=== PATIENT | female | born 1975 | race African-American/Black ===

== ENCOUNTER 2019-02-06 23:22 | Inpatient (IN) | payer MEDICAID ==
[~2019-02-06] VITALS: Ht 170.2 cm; Wt 70.3 kg
--- NOTE | 2019-02-06 23:45 | NUR ---
PT BIBSELF C/O INTERMITTENT CHEST PAIN AND SOB WITH ACTIVITY X2 MONTHS. DENIES NAUSEA, VOMITTING, DIZZINESS, HEADACHE. PT AAOX4. RESPIRATIONS EVEN AND UNLABORED. SKIN WARM AND INTACT. ABLE TO AMBULATE WITH STEADY GAIT. NO ACUTE DISTRESS NOTED AT THIS TIME. WILL CONTINUE TO MONITOR
--- NOTE | 2019-02-06 23:50 | NUR ---
PHLBEOTOMIST AT BEDSIDE FOR BLOOD DRAW
--- NOTE | 2019-02-06 23:53 | NUR ---
RADIOLOGY AT BEDSIDE FOR CXR
[2019-02-06 23:59] LABS: BASOPHILS # (AUTO) 0.1 /CMM (0.0-0.2); BASOPHILS % (AUTO) 1.5 % (0.0-2.0); EOSINOPHILS % (AUTO) 1.7 % (0.0-6.0); LYMPHOCYTES # (AUTO) 2.3 /CMM (0.8-4.8); MEAN CORPUSCULAR HGB CONC 28 g/dl (31.0-36.0); MEAN CORPUSCULAR VOLUME 55 fL (82-100); MONOCYTES # (AUTO) 0.3 /CMM (0.1-1.30); MONOCYTES % (AUTO) 6.7 % (2.0-12.0); NEUTROPHILS # (AUTO) 1.5 /CMM (1.8-8.9); NEUTROPHILS % (AUTO) 36.1 % (43.0-81.0); PLATELET COUNT (AUTO) 323 /CMM (150-450); RED BLOOD CELL COUNT(AUTO) 3.24 MIL/uL (4.0-5.2); WHITE BLOOD COUNT (AUTO) 4.2 K/uL (4.3-11.0)
[2019-02-07] VITALS (13 sets, daily range): BP systolic 106–133; BP diastolic 70–94
[2019-02-07 00:03] LABS: HEMATOCRIT 18 % (33-45)
[2019-02-07 00:05] LABS: CALCIUM, SERUM 8.8 mg/dL (8.5-10.1); CARBON DIOXIDE 25 mmol/L (21-32); CHLORIDE 106 mmol/L (98-107); CREATININE 0.6 mg/dL (0.6-1.3); GLUCOSE 99 mg/dL (74-106); POTASSIUM 3.5 mmol/L (3.5-5.1); SODIUM SERUM 140 mmol/L (136-145); UREA NITROGEN, BLOOD 8 mg/dL (7-18)
[2019-02-07 00:42] LABS: EOSINOPHILS % (MANUAL) 1 % (0-4); LYMPHOCYTES % (MANUAL) 56 % (16-48); MONOCYTES % (MANUAL) 4 % (0-11.0); NEUTROPHILS % (MANUAL) 37 (42-76)
[2019-02-07 00:56] LABS: ALBUMIN 3.9 g/dL (3.4-5.0); BILIRUBIN,DIRECT 0.1 mg/dL (0.0-0.2); BILIRUBIN,TOTAL 0.3 mg/dL (0.2-1.0); TOTAL PROTEIN, SERUM 7.1 g/dL (6.4-8.2)
--- NOTE | 2019-02-07 00:59 | NUR ---
BED ASSIGNMENT 205-2
[2019-02-07 01:24] LABS: IRON, SERUM 10 ug/dl (50-175); TOTAL IRON BINDING CAPACITY 449 ug/dl (250-450)
[2019-02-07] MEDS ORDERED: ACETAMINOPHEN 325 MG TABLET PO PRN (01:30)
[2019-02-07] MEDS ORDERED: MAGNESIUM HYDROXIDE 30 ML UDC PO PRN (01:30)
[2019-02-07] MEDS ORDERED: ONDANSETRON HCL/PF 4 MG/2 ML VIAL IVP PRN (01:30)
[2019-02-07] MEDS ORDERED: MAG HYDROX/AL HYDROX/SIMETH 30 ML UDC PO PRN (01:30)
[2019-02-07] MEDS ORDERED: HYDROCODONE/APAP 5/325MG 1 EACH TABLET PO PRN (01:30)
[2019-02-07] MEDS ORDERED: Z GUARD REMEDY 2 OZ OINT TP PRN (01:30)
--- NOTE | 2019-02-07 02:32 | NUR ---
GAVE REPORT TO NELL JACKSON FOR PAPITO
--- NOTE | 2019-02-07 04:04 | NUR ---
[facility]
--- NOTE | 2019-02-07 04:06 | NUR ---
ADMISSION NOTES: RECEIVED REPORT FROM CHRISSY JACKSON. PT BROUGHT TO THE UNIT VIA GURNEY, ACCOMPANIED BY FRIENDS. RECEIVED PT WITH BLOOD TRANSFUSION BAG EMPTIED, NOW RN WILL RUN NS. IV ACCESS PATENT AND FLUSHING WELL, ON LEFT AC G 20. ORIENTED PT TO UNIT POLICY AND HOURLY ROUNDING, USE OF CALL LIGHT . ANSWER PT'S CONCERNS AND QUESTIONS. VS TAKEN AND RECORDED. SKIN ASSESSMENT PERFORMED, NO SKIN ISSUES NOTED. INVENTORY OF BELONGINGS COMPLETED BY JENNY GONCALVES. PT'S FRIENDS TOOK PT'S [place]ALLET HOME. WILL GET 2ND UNIT OF BLOOD AFTER RUNNING NS. SAFETY PRECAUTIONS FOR FALL INITIATED, CALL LIGHT IN REACH, WILL CONTINUE TO MONITOR PT.
--- NOTE | 2019-02-07 05:36 | NUR ---
BLOOD TRANSFUSION: STARTED WITH 2ND UNIT OF BLOOD TRANSFUSION. EXPLAINED ABOUT RISK AND BENEFITS. VS TAKEN AND RECORDED. WILL STAY WITH THE PT FOR 15-30MINS TO MONITOR FOR ANY BLOOD TRANSFUSION REACTIONS.
--- NOTE | 2019-02-07 06:05 | NUR ---
RN NOTES: NO S/S OF BLOOD TRANSFUSION REACTION NOTED. WILL CONTINUE MONITORING PT
--- NOTE | 2019-02-07 07:00 | NUR ---
RN OPENING NOTES RECEIVED PATIENT IN BED RESTING. A/OX4, ABLE TO MAKE NEEDS KNOWN. NOT IN ANY FORM OF DISTRESS. DENIED ANY PAIN OR DISCOMFORT. IV ACCESS INTACT AND PATENT. ONGOING BLOOD TRANSFUSION, TOLERATING WELL, NO ADVRSE REACTION NOTED. KEPT PATIENT SAFE AND COMFORTABLE. BED IN LOW/LOCKED POSIITON, SIDERAILS UPX2, CALL LIGHT IN REACH. WILL CONTINUE TO MONITOR ACCORDINGLY.
--- NOTE | 2019-02-07 07:05 | NUR ---
RN CLOSING NOTES: PT IN BED, SLEEPING, AROUSES TO TACTILE STIMULI. DENIES ANY PAIN OR DISCOMFORT AT THIS TIME. IV ACCESS REMAINS PATENT AND FLUSHING WELL, ON HL, PT REFUSING IVF DESPITE GIVING EDUCATION. VS REMAINS STABLE, NEEDS ATTENDED. SAFETY PRECAUTIONS FOR FALL REMAINS ENGAGED, CALL LIGHT IN REACH, WILL ENDORSE TO DAY RN FOR CONTINUITY OF CARE. Addendum: 02/07/19 at 0711 by HOLLIS CALVIN RN DISREGARD ABOVE DOCUMENTATION, WRONG ENTRY
--- NOTE | 2019-02-07 07:10 | NUR ---
RN CLOSING NOTES: PT IN BED, AWAKE, DENIES ANY DIZZINESS, HEAD ACHE, LIGHT HEADEDNESS. IV ACCESS REMAINS PATENT AND FLUSHING WELL, INFUSING WITH 2ND BAG OF PRBC. NO S/S OF BLEEDING NOTED. PT ON VS MONITORING Q15, [id number] PER BT PROTOCOL. FOR CASE MANAGEMENT, NAIL PULLER CONSULT. PER PT, SHE WAS TOLD BY ER MD THAT SHE WILL BE SEEN BY INSPECTOR FLOOR SUB ASSEMBLY/ONCOLOGIST TODAY BECAUSE HER H/H IS TOO LOW. NEEDS ATTENDED AND ANTICIPATED. SAFETY PRECAUTIONS FOR FALL INITIATED, CALL LIGHT IN REACH. WILL ENDORSE TO DAY RN FOR CONTINUITY OF CARE.
[2019-02-07] MEDS ORDERED: ASCO10007 PO (07:22)
--- NOTE | 2019-02-07 08:00 | NUR ---
RN NOTES BLOOD TRANSFUSION FINISHED. VS STABLE, PATIENT TOLERATED WELL. WILL MONITOR ACCORDINGLY
[2019-02-07 11:03] LABS: BASOPHILS % (AUTO) 0.7 % (0.0-2.0); EOSINOPHILS % (AUTO) 3.6 % (0.0-6.0); HEMATOCRIT 23 % (33-45); HEMOGLOBIN 7.1 g/dL (11.5-14.8); LYMPHOCYTES # (AUTO) 1.5 /CMM (0.8-4.8); LYMPHOCYTES % (AUTO) 50.1 % (20.0-44.0); MEAN CORPUSCULAR HGB CONC 31 g/dl (31.0-36.0); MEAN CORPUSCULAR VOLUME 62 fL (82-100); MONOCYTES # (AUTO) 0.4 /CMM (0.1-1.30); MONOCYTES % (AUTO) 12.4 % (2.0-12.0); NEUTROPHILS % (AUTO) 33.2 % (43.0-81.0); PLATELET COUNT (AUTO) 278 /CMM (150-450); RED BLOOD CELL COUNT(AUTO) 3.76 MIL/uL (4.0-5.2); WHITE BLOOD COUNT (AUTO) 3.1 K/uL (4.3-11.0)
[2019-02-07] MEDS: PANTOPRAZOLE 40 MG TABLET.DR PO SCH ×2 (11:26→17:52)
[2019-02-07 12:49] LABS: EOSINOPHILS % (MANUAL) 1 % (0-4); LYMPHOCYTES % (MANUAL) 41 % (16-48); MONOCYTES % (MANUAL) 12 % (0-11.0); NEUTROPHILS % (MANUAL) 46 (42-76)
[2019-02-07 14:34] LABS: OCCULT BLOOD STOOL POSITIVE (NEGATIVE)
[2019-02-07] MEDS: SOD FERRIC GLUC 125 MG in IV NS 0.9% 100 ML IV SCH (14:57)
--- NOTE | 2019-02-07 19:30 | NUR ---
RN INITIAL NOTES: RECEIVED REPORT FROM CHRIS JACKSON. PT IN BED, FRIENDS AT BED SIDE. NO IV ACCESS AT THIS TIME PT REQUESTED TO REMOVE IT, PER DAY RN, PT COMPLAINING ITS PAINFUL ALTHOUGH ITS A NEW INSERTION. PT WANTS IV TO BE DONE IN AM BEFORE PROCEDURE. EXPLAINED TO PT ABOUT IV POLICY, MADE MD AWARE. PT STILL INSISTED NO IV TONIGHT. DISCUSSED PLAN OF CARE TO PT TONIGHT. SAFETY PRECAUTIONS FOR FALL INITIATED, CALL LIGHT IN REACH, WILL CONTINUE MONITORING PT.
--- NOTE | 2019-02-07 19:35 | NUR ---
RN CLOSING NOTES PATIENT IN STABLE CONDITION. ALL NEEDS ATTENDED AND PROVIDED. ALL DUE MEDICATIONS ADMINISTERED ORDERED. ASSISTED WITH ADLS. NPO AFTER MIDNIGHT, SCHEDULE FOR COLONOSCOPY/EGD TOMORROW. KEPT PATIENT SAFE AND COMFORTBALE. BED IN LOW/LOCKED POSITION, SIDERAILS UPX2, CALL LIGHT IN REACH. ENDORSED TO NIGHT RN FOR PAPITO.
[2019-02-07] MEDS ORDERED: PEG 3350/NA SULF,BICARB,CL/KCL 4,000 ML BOTTLE PO ONE (20:00)
[2019-02-07] MEDS ORDERED: PEG 3350/NA SULF,BICARB,CL/KCL 4,000 ML BOTTLE ONE (20:25)
--- NOTE | 2019-02-07 21:33 | NUR ---
RN NOTES: INFORMED PT ABOUT PROCEDURE FOR TOMORROW EGD, COLONOSCOPY, DISCUSSED RISK AND BENEFITS OF THE PROCEDURES. PT FULLY AGREE TO HAVE PROCEDURE DONE TOMORROW, SIGNED CONSENT X3, EXPLAINED ABOUT GOLYTELY. [employer] GOLAMANDALY ALEX PITCHER INSTRUCTED PT SHE WILL NEED TO FINISH THE ENTIRE 4L UNTIL 0600AM PER INSTRUCTIONS BY GI , INSTRUCTED ALSO TO CALL WHENEVER SHE NEEDS TO USE BATHROOM IN ORDER TO SEE THE COLOR, CONSISTENCY OF THE BM. PT UNDERSTAND AND AGREE WITH THE PLAN.
[2019-02-08] VITALS (9 sets, daily range): BP systolic 102–120; BP diastolic 70–82
--- NOTE | 2019-02-08 00:24 | NUR ---
RN NOTES: PT REQUESTED TO TAKE A SHOWER NOW. EVS JUST FINISHED CLEANING THE SHOWER ROOM.
--- NOTE | 2019-02-08 01:20 | NUR ---
RN NOTES: PT HAD BM, SEEN THE CONSISTENCY AND COLOR, ALREADY LIQUID LIKE WATER. PT STATED SHE WILL SLEEP FOR NOW, BUT WILL CONTINUE TO DRINK GOLYTELY LATER, SHE ALREADY CONSUMED 1L OF GOLYTELY I TRANSFERRED IT ON PITCHER TO EASILY POUR THE MEDICATION/PREP.
[2019-02-08] MEDS ORDERED: SORBITOL SOLUTION 30 ML ONE (05:36)
--- NOTE | 2019-02-08 05:53 | NUR ---
RN NOTES: SORBITOL ORDERED FOR 0600 AM, MEDICATION OVERRIDE BY RN COTTON CLEANER JOSSUE, HOWEVER ONLY 60ML (2 SOLUTIONS) AVAILABLE STOCK FROM [facility]. PER RN ALKA MARCUM TO WAIT FOR PHARMACY TO OPEN IN ORDER TO GET THE OTHER HALF OF THE DOSE. INFORMED GI DR YOUNG. ASKED IF OKAY TO GIVE THE 60ML SOLUTION NOW, AND WILL GIVE REMAINING DOSE ONCE PHARMACY OPENS BY 0700/0730AM.
[2019-02-08] MEDS ORDERED: SORBITOL SOLUTION 30 ML PO ONE (06:00)
[2019-02-08 06:29] LABS: BASOPHILS % (AUTO) 0.7 % (0.0-2.0); EOSINOPHILS % (AUTO) 2.4 % (0.0-6.0); HEMATOCRIT 23 % (33-45); LYMPHOCYTES # (AUTO) 1.8 /CMM (0.8-4.8); LYMPHOCYTES % (AUTO) 49.9 % (20.0-44.0); MEAN CORPUSCULAR HGB CONC 31 g/dl (31.0-36.0); MEAN CORPUSCULAR VOLUME 61 fL (82-100); MONOCYTES # (AUTO) 0.4 /CMM (0.1-1.30); MONOCYTES % (AUTO) 11.7 % (2.0-12.0); NEUTROPHILS # (AUTO) 1.3 /CMM (1.8-8.9); NEUTROPHILS % (AUTO) 35.3 % (43.0-81.0); PLATELET COUNT (AUTO) 263 /CMM (150-450); RED BLOOD CELL COUNT(AUTO) 3.69 MIL/uL (4.0-5.2); WHITE BLOOD COUNT (AUTO) 3.6 K/uL (4.3-11.0)
--- NOTE | 2019-02-08 06:38 | NUR ---
ADMINISTRATION OF 60ML OF SORBITOL: ONLY 60ML (2 SOLUTIONS) AVAILABLE, OVERRIDE BY RN SUP JOSSUE, UNABLE TO SCAN MEDS SINCE THE DOSE AVAILABLE IS NOT ENOUGH. PER RN SUP TO DOCUMENT THAT 60ML SOLUTION IS BEING ADMINISTERED TO PT, AND THE REMAINING 60 ML WILL BE ADMINISTER ONCE PHARMACY OPENS AND BRING THE SAID MEDICATIONS. PER RN SUP, TO SCAN MEDICATION LATER ONCE ALL DOSAGE/MEDICATION BOTTLES AVAILABLE. ADMINISTER SORBITOL 60 ML PO ORDERED BY MD FOR BOWEL PREP.
[2019-02-08 06:42] LABS: CALCIUM, SERUM 8.1 mg/dL (8.5-10.1); CREATININE 0.6 mg/dL (0.6-1.3); PHOSPHORUS 3.6 mg/dL (2.5-4.9); POTASSIUM 3.6 mmol/L (3.5-5.1)
--- NOTE | 2019-02-08 06:54 | NUR ---
RN NOTES: SPOKED WITH PHARMACIST, RELAYED SITUATION ABOUT SORBITOL, STATED THEY WILL BRING 2 MORE SORBITOL SOLUTION
--- NOTE | 2019-02-08 06:58 | NUR ---
CRITICAL HGB 7.0 : RECEIVED REPORT FROM BIPIN, LAB, HGB 7.0, CONTACTED YARED ESPINAL, AWAITING FOR CALL BACK
--- NOTE | 2019-02-08 07:16 | NUR ---
RN CLOSING NOTES: PT DENIES ANY PAIN OR DISCOMFORT AT THIS TIME. PT NPO X MEDS. SORBITOL ADMINISTERED AT 0600AM PER MD FOR BOWEL PREP. PT WANTS IV INSERTION FOR LATER, BECAUSE SHE'S AFRAID THAT THE NEEDLE WILL CAUSE DISCOMFORT AGAIN ON HER ARM. EDUCATION PROVIDED TO PT. PT FOR EGD AND COLONOSCOPY AT 12NOON TODAY WITH DR YOUNG SUPERVISING GI PHYSICIAN. ALL CONSENT SIGNED BY PT, CHECKLIST ATTACHED TO CHART. PT'S STOOL CLEAR AND LIQUID LIKE WATER. AWAITING CALL BACK FROM MD TRIBAL DELEGATE REGARDING HGB 7. VS REMAINS STABLE, NEEDS ATTENDED. SAFETY PRECAUTIONS FOR FALL REMAINS ENGAGED, CALL LIGHT IN REACH, WILL ENDORSE TO DAY RN FOR CONTINUITY OF CARE.
[2019-02-08 07:18] LABS: THYROID STIMULATING HORMONE 2.793 uIU/mL (0.358-3.74)
--- NOTE | 2019-02-08 07:29 | NUR ---
MS RN NOTES PATIENT IN BED ALERT ORIENTED X 4. NO ACUTE DISTRESS NOTED. BREATHING UNLABORED. NO SOB NOTED. NO IV ACCESS AT THIS TIME, REFUSE INSERTION NOW WANTS DONE LATER, WILL TRY AGAIN LATER. SAFETY MEASURES IN PLACE. CALL LIGHT WITHIN REACH. WILL CONTINUE TO MONITOR ACCORDINGLY.
--- NOTE | 2019-02-08 07:53 | NUR ---
RN NOTES: PER DR YOUNG TO GIVE 1 UNIT PRBC
--- NOTE | 2019-02-08 08:09 | NUR ---
MS RN NOTES PHARMACY DELIVERED REMAINING 60ML OF SORBITOL, MEDICATION ADMINISTERED.
--- NOTE | 2019-02-08 08:15 | NUR ---
MS RN NOTES DR BOWSER REGARDING HGB 7, 1 PRBC TO BE GIVEN SOON AVAILABLE.
[2019-02-08 08:29] LABS: LYMPHOCYTES % (MANUAL) 55 % (16-48); MONOCYTES % (MANUAL) 13 % (0-11.0); NEUTROPHILS % (MANUAL) 32 (42-76)
[2019-02-08] MEDS: PANTOPRAZOLE 40 MG TABLET.DR PO SCH ×2 (09:20→17:31)
--- NOTE | 2019-02-08 10:30 | NUR ---
MS RN NOTES PATIENT TRANSPORTED TO OPERATING ROOM FOR EGD AND COLONOSCOPY IN STABLE CONDITION.
--- NOTE | 2019-02-08 13:00 | NUR ---
MS RN NOTES PATIENT CAME BACK OPERATING ROOM, S/P EGD AND COLONOSCOPY BY DR YOUNG IN STABLE CONDITION. PATIENT ALERT ORIENTED X 4. NO ACUTE DISTRESS NOTED. WITH STABLE VITAL SIGNS. WILL CONTINUE TO MONITOR PATIENT. DR YOUNG ORDERED REGULAR DIET, NOTED AND CARRIED OUT.
--- NOTE | 2019-02-08 15:00 | NUR ---
MS RN NOTES STARTED BLOOD TRANSFUSION, PATIENT WITH STABLE VITAL SIGNS. WILL CONTINUE TO MONITOR PATIENT.
--- NOTE | 2019-02-08 15:15 | NUR ---
MS RN NOTES WITH ON GOING BLOOD TRANSFUSION NO ADVERSE REACTION NOTED, PATIENT WITH STABLE VITAL SIGNS. WILL CONTINUE TO MONITOR PATIENT.
--- NOTE | 2019-02-08 15:19 | NUR ---
Social service consult requested by CARLEI Garcia for information on Advance Directive. RADHIKA met with pt. bedside. Pt. is alert and oriented x 4. SW explained the Advance Directive process and left the forms for the pt. Pt. stated, she will review the form later since she recently came out of surgery. No other social service needs are requested at this time. SW is available, if needed.
--- NOTE | 2019-02-08 15:45 | NUR ---
MS RN NOTES WITH ON GOING BLOOD TRANSFUSION NO ADVERSE REACTION NOTED, PATIENT WITH STABLE VITAL SIGNS. WILL CONTINUE TO MONITOR PATIENT.
--- NOTE | 2019-02-08 18:22 | NUR ---
MS RN NOTES BLOOD TRANSFUSION ENDED ,NO ADVERSE REACTION NOTED, PATIENT WITH STABLE VITAL SIGNS. WILL CONTINUE TO MONITOR PATIENT.
[2019-02-08] MEDS: SOD FERRIC GLUC 125 MG in IV NS 0.9% 100 ML IV SCH (18:24)
--- NOTE | 2019-02-08 19:00 | NUR ---
MS RN NOTES PATIENT IN BED ALERT ORIENTED X 4. NO ACUTE DISTRESS NOTED. BREATHING UNLABORED. NO SOB NOTED. IV ACCESS PATENT AND INTACT, NO REDNESS OR SWELLING NOTED. DUE MEDICATIONS GIVEN, NO ASE NOTED. NEEDS ATTENDED AND ANTICIPATED. KEPT CLEAN DRY AND COMFORTABLE. SAFETY MEASURES IN PLACE. CALL LIGHT WITHIN REACH. WILL ENDORSE TO NIGHT NURSE FOR CONTINUITY OF CARE.
--- NOTE | 2019-02-08 19:05 | NUR ---
RN MS OPENING NOTES RECEIVED PATIENT IN BED AWAKE ALERT AND ORIENTED X4, RESPIRATIONS EVEN AND UNLABORED WITH EQUAL RISE AND FALL OF CHEST,DENIES ANY PAIN OR DISCOMFORT AT THIS TIME, LEFT WRIST IV #20 G INTACT AND PATENT, NO REDNESS, NO INFILTRATION PRESENT, ORIENTED TO STAFF AND CALL LIGHT AND KEPT WITHIN REACH, ALL NEEDS ATTENDED AT THIS TIME, DISCUSSED PLAN OF CARE, WILL CONTINUE TO ATTEND TO NEEDS.
--- NOTE | 2019-02-08 19:29 | NUR ---
MS RN NOTES RECEIVED ORDERS FROM DR BOWSER TO CHECK HGB AND HCT POST BLOOD TRANSFUSION.
[2019-02-08 20:32] LABS: HEMOGLOBIN 8.5 g/dL (11.5-14.8)
--- NOTE | 2019-02-09 06:46 | NUR ---
RN MS CLOSING NOTES PATIENT IN BED AWAKE ALERT AND ORIENTED X4, RESPIRATIONS EVEN AND UNLABORED WITH EQUAL RISE AND FALL OF CHEST,DENIES ANY PAIN OR DISCOMFORT AT THIS TIME, LEFT WRIST IV #20 G INTACT AND PATENT,SL, NO REDNESS, NO INFILTRATION PRESENT, CALL LIGHT KEPT WITHIN REACH, ALL NEEDS ATTENDED AT THIS TIME, DISCUSSED PLAN OF CARE, NO CHANGES NOTED THROUGHOUT SHIFT. WILL CONTINUE TO MONITOR AND ENDORSE TO NEXT SHIFT.
--- NOTE | 2019-02-09 07:15 | NUR ---
MS RN NOTES PATIENT IN BED ALERT ORIENTED X 4. NO ACUTE DISTRESS NOTED. BREATHING UNLABORED. NO SOB NOTED. IV ACCESS PATENT AND INTACT, NO REDNESS OR SWELLING NOTED. SAFETY MEASURES IN PLACE. CALL LIGHT WITHIN REACH. WILL CONTINUE TO MONITOR ACCORDINGLY.
[2019-02-09 07:17] LABS: BASOPHILS % (AUTO) 0.7 % (0.0-2.0); EOSINOPHILS % (AUTO) 2.9 % (0.0-6.0); HEMATOCRIT 28 % (33-45); HEMOGLOBIN 8.7 g/dL (11.5-14.8); LYMPHOCYTES # (AUTO) 1.9 /CMM (0.8-4.8); LYMPHOCYTES % (AUTO) 38.9 % (20.0-44.0); MEAN CORPUSCULAR HGB CONC 31 g/dl (31.0-36.0); MEAN CORPUSCULAR VOLUME 65 fL (82-100); MONOCYTES # (AUTO) 0.4 /CMM (0.1-1.30); MONOCYTES % (AUTO) 8.9 % (2.0-12.0); NEUTROPHILS # (AUTO) 2.3 /CMM (1.8-8.9); NEUTROPHILS % (AUTO) 48.6 % (43.0-81.0); PLATELET COUNT (AUTO) 253 /CMM (150-450); RED BLOOD CELL COUNT(AUTO) 4.28 MIL/uL (4.0-5.2); WHITE BLOOD COUNT (AUTO) 4.8 K/uL (4.3-11.0)
[2019-02-09 07:30] LABS: CALCIUM, SERUM 8.4 mg/dL (8.5-10.1); CREATININE 0.7 mg/dL (0.6-1.3); MAGNESIUM 1.9 mg/dL (1.8-2.4); POTASSIUM 3.6 mmol/L (3.5-5.1)
[2019-02-09 08:00] VITALS: BP 111/66
[2019-02-09] MEDS: PANTOPRAZOLE 40 MG TABLET.DR PO SCH (09:37)
--- NOTE | 2019-02-09 13:23 | NUR ---
MS RN NOTES PATIENT SEEN AND EVALUATED BY DR ALVARO MAHONEY, NOTED AND CARRIED OUT.
--- NOTE | 2019-02-09 14:15 | NUR ---
MS RN NOTES PATIENT DISCHARGE HOME WITH STABLE VITAL SIGNS, NO ACUTE DISTRESS NOTED. BREATHING UNLABORED. NO SOB NOTED. DISCHARGE INSTRUCTIONS GIVEN TO THE PATIENT INCLUDING FOLLOW UP WITH PRIMARY DOCTOR, OBGYN AND NEW PRESCRIPTIONS, VERBALIZED UNDERSTANDING. ALL BELONGINGS ACCOUNTED FOR. IV ACCESS REMOVED, NO BLEEDING, NO REDNESS, NO SWELLING NOTED. ASSISTED TO THE LOBBY, PICKED UP VIA PRIVATE CAR IN STABLE CONDITION.
== END 2019-02-09 14:15 | disposition home or self-care (01) | DRG 663 ==
LOC: ER 23:28 → MEDSG2 02-07 03:57
PROVIDERS: ADMIT Student in an Organized Health Care Education/Training Program; ATTEND Internal Medicine
PROC: 0DB98ZX Excision of Duodenum, Via Natural or Artificial Opening Endoscopic, Diagnostic (ICD-10-PCS; principal; 2019-02-07)
PROC: 30233N1 Transfusion of Nonautologous Red Blood Cells into Peripheral Vein, Percutaneous Approach (ICD-10-PCS; principal; 2019-02-07)
PROC: 0DJD8ZZ Inspection of Lower Intestinal Tract, Via Natural or Artificial Opening Endoscopic (ICD-10-PCS; 2019-02-08)
DX: D50.9 Iron deficiency anemia, unspecified (principal); D70.9 Neutropenia, unspecified; K21.9 Gastro-esophageal reflux disease without esophagitis; N92.0 Excessive and frequent menstruation with regular cycle; K57.30 Diverticulosis of large intestine without perforation or abscess without bleeding
CPT/HCPCS: 36415; 71045-TC; 80048-TC; 80061-TC; 80076-TC; 82272-TC; 82728-TC; 83540-TC; 83735-TC; 84100-TC; 84443-TC; 84484-TC; 84703-TC; 85025-TC; 85027-TC; 85610-TC; 85730-TC; 86850-TC; 86921-TC; 87081-TC; 88305-TC; G0378; J2704; J2916; J7030; J7050; P9016-BL